=== PATIENT | male | born 1970 | race African-American/Black ===

== ENCOUNTER → 2020-10-14 08:17 | Outpatient (BNVA) | payer OTHER, SELFPAY | PROVIDERS: PCP Internal Medicine; Referring Provider Internal Medicine; Visit Provider Student in an Organized Health Care Education/Training Program | DX: Z13.89 Encounter for screening for other disorder (principal) ==

== ENCOUNTER → 2021-01-28 12:16 | Outpatient (BNVA) | payer OTHER, SELFPAY | PROVIDERS: PCP Internal Medicine; Visit Provider Student in an Organized Health Care Education/Training Program | DX: M35.2 Behcet's disease (principal); M19.90 Unspecified osteoarthritis, unspecified site; H20.9 Unspecified iridocyclitis; Z79.899 Other long term (current) drug therapy | CPT/HCPCS: 99212 ==

== ENCOUNTER → 2021-06-17 10:10 | Outpatient (BNVA) | payer OTHER, SELFPAY | PROVIDERS: PCP Internal Medicine; Visit Provider Student in an Organized Health Care Education/Training Program | DX: M35.2 Behcet's disease (principal); H20.9 Unspecified iridocyclitis; M19.90 Unspecified osteoarthritis, unspecified site; Z88.8 Allergy status to other drugs, medicaments and biological substances; Z79.52 Long term (current) use of systemic steroids; Z79.899 Other long term (current) drug therapy | CPT/HCPCS: 99212 ==

== ENCOUNTER 2021-08-25 11:24 | Outpatient (REF) | payer OTHER, SELFPAY ==
[2021-08-25 11:48] LABS: MANUAL DIFF FLAG NO
[2021-08-25 12:08] LABS: Basophils Absolute Auto 0.1 X10*3/uL (0.0-0.2); Basophils Percent Auto 0.4 % (0-2); Eosinophils Absolute Auto 0.1 X10*3/uL (0.0-0.4); Eosinophils Percent Auto 0.4 % (0-4); Hematocrit 41.5 % (42.0-52.0); Hemoglobin 13.5 g/dl (14.0-18.0); Imm Gran Abs Auto 0.08 X10*3/uL (0.00-0.03); Imm Gran Pct Auto 0.6 % (0.0-0.4); Lymphocytes Percent Auto 27.9 % (20-40); Mean Corpuscular HGB Conc 32.5 g/dl (31.0-36.0); Mean Corpuscular Hemoglobin 28.4 pg (27.0-33.0); Mean Corpuscular Volume 87.2 fL (80.0-98.0); Mean Platelet Volume 8.8 fL (9.4-12.4); Monocytes Absolute Auto 1.2 X10*3/uL (0.1-1.2); Monocytes Percent Auto 8.4 % (2-11); Neutrophils Absolute Auto 8.86 x10*3/uL (2.0-8.3); Neutrophils Percent Auto 62.3 % (45-73); Platelet Count 274 X10*3/uL (160-400); Red Blood Count 4.76 X10*6/uL (4.60-5.80); Red Cell Distribution Width 13.8 % (11.0-16.0); White Blood Count 14.2 X10*3/uL (4.8-10.8)
[2021-08-25 12:52] LABS: Alanine Aminotransferase 25 U/L (0-40); Albumin Level 3.9 g/dL (3.5-5.0); Alkaline Phosphatase 75 U/L (39-117); Anion Gap 11 (12-20); Aspartate Amino Transferase 20 U/L (5-37); Bilirubin Total 0.4 mg/dL (0.0-1.0); Blood Urea Nitrogen 15 mg/dL (9-16); Calcium 9.9 mg/dL (8.4-10.2); Carbon Dioxide 25 mmol/L (22-29); Chloride 109 mmol/L (96-108); Estimated Glomerular Filt Rate 55; Glucose Random 118 mg/dL (60-115); Potassium 3.7 mmol/L (3.3-5.1); Sodium 141 mmol/L (135-145); Total Protein 7.8 g/dL (6.5-8.0)
[2021-08-25 13:16] LABS: Erythrocyte Sedimentation Rate 25 MM/HR (0-15)
== END 2021-08-25 11:25 | disposition home or self-care (01) ==
LOC: HO.LAB 11:24
PROVIDERS: Visit Provider Student in an Organized Health Care Education/Training Program
DX: M35.2 Behcet's disease (principal)
CPT/HCPCS: 36415; 80053; 85025; 85652; 86140

== ENCOUNTER 2022-02-17 10:13 | Outpatient (REF) | payer OTHER, SELFPAY ==
[2022-02-17 12:09] LABS: MANUAL DIFF FLAG NO
[2022-02-17 13:24] LABS: Basophils Percent Auto 0.2 % (0-2); Eosinophils Absolute Auto 0.1 X10*3/uL (0.0-0.4); Eosinophils Percent Auto 0.5 % (0-4); Hematocrit 43.3 % (42.0-52.0); Hemoglobin 14.1 g/dl (14.0-18.0); Imm Gran Abs Auto 0.05 X10*3/uL (0.00-0.03); Imm Gran Pct Auto 0.4 % (0.0-0.4); Lymphocytes Absolute Auto 2.4 X10*3/uL (1.2-4.9); Lymphocytes Percent Auto 18.7 % (20-40); Mean Corpuscular HGB Conc 32.6 g/dl (31.0-36.0); Mean Corpuscular Hemoglobin 27.8 pg (27.0-33.0); Mean Corpuscular Volume 85.4 fL (80.0-98.0); Mean Platelet Volume 9.2 fL (9.4-12.4); Monocytes Absolute Auto 0.9 X10*3/uL (0.1-1.2); Neutrophils Absolute Auto 9.2 x10*3/uL (2.0-8.3); Neutrophils Percent Auto 73.2 % (45-73); Platelet Count 243 X10*3/uL (160-400); Red Blood Count 5.07 X10*6/uL (4.60-5.80); Red Cell Distribution Width 14.4 % (11.0-16.0); White Blood Count 12.6 X10*3/uL (4.8-10.8)
[2022-02-17 14:40] LABS: Erythrocyte Sedimentation Rate 32 MM/HR (0-15)
== END 2022-02-17 10:14 | disposition home or self-care (01) ==
LOC: HO.LAB 10:13
PROVIDERS: Visit Provider Internal Medicine Rheumatology
DX: M35.2 Behcet's disease (principal); M19.90 Unspecified osteoarthritis, unspecified site; H20.9 Unspecified iridocyclitis; R27.0 Ataxia, unspecified; Z98.890 Other specified postprocedural states; Z86.79 Personal history of other diseases of the circulatory system
CPT/HCPCS: 36415; 85025; 85652; 86140; 99212

== ENCOUNTER 2022-03-05 09:12 | Outpatient (REF) | payer OTHER, SELFPAY ==
--- NOTE | ~2022-03-05 | MR_ITS ---
EXAMINATION: MRI BRAIN WITHOUT CONTRAST CLINICAL INFORMATION: 51-year-old with ataxia, unspecified. COMPARISON: None FINDINGS: BRAIN VOLUME: Within normal limits within the limitations of a qualitative assessment. STRUCTURAL: No malformations. BRAIN AND MENINGES: DWI sequence demonstrates no restricted diffusion to suggest acute or subacute cerebral ischemia. Gradient refocused imaging demonstrates no evidence for hemorrhage, hemosiderin staining or abnormal mineral deposition. There are patchy and confluent regions of FLAIR/T2 signal hyperintensity and subcentimeter regions of T2 hyperintensity noted in the subcortical and deeper periventricular white matter of both cerebral hemispheres predominately in a periventricular distribution which are nonspecific findings, but could reflect chronic ischemic microangiopathy. There is a small remote lacunar infarct in the anterior right putamen also involving the anterior limb of the right internal capsule and caudate head. Probable small remote lacunar infarct left putamen. No extra-axial fluid collections, significant space-occupying process or mass effect. VENTRICLES AND SUBARACHNOID SPACES: The ventricular system and subarachnoid spaces are remarkable for a mild degree of ex vacuo dilatation of the frontal horn of the right lateral ventricle likely reflecting chronic infarction of the adjacent right lentiform nucleus. Otherwise there is no hydrocephalus. ORBITAL STRUCTURES: Bilateral lens extractions are noted. The visualized orbital structures are grossly unremarkable within the limitations of the study. VASCULAR: Signal voids are noted in the visualized major intracranial vessels. OSSEOUS STRUCTURES, SINUSES/MASTOIDS, EXTRACRANIAL SOFT TISSUES: Minor mucosal thickening in the ethmoid complex noted. Osseous marrow signal intensity appears homogeneous. There is lordotic reversal centered at C4 with discogenic degenerative changes and spondylosis at C3-C4 and C4-C5. Visualized extracranial soft tissue structures are unremarkable. MR/MR head/brain wo con IMPRESSION: 1. Findings suggesting chronic ischemic microangiopathy in the white matter of both cerebral hemispheres with a periventricular distribution, with remote infarct involving the right lentiform nucleus and remote lacunar infarct involving the left putamen. 2. No acute or subacute cerebral ischemia, hemorrhage, extra-axial fluid collection, space-occupying process, mass effect or hydrocephalus.
--- NOTE | ~2022-03-05 | XR_ITS ---
EXAMINATION: PRE-MRI ORBITS. CLINICAL INFORMATION: Rule out metallic implant or foreign body COMPARISON: None TECHNIQUE: 3 views FINDINGS: There are no radiopaque metallic foreign body seen in the orbits. Visualized paranasal sinuses and mastoid air cells are well aerated and clear. No bony abnormality seen. XR/XR pre mri screening IMPRESSION: No radiopaque metallic foreign body seen in the orbits.
== END 2022-03-05 09:13 | disposition home or self-care (01) ==
LOC: HO.MRI 09:12
PROVIDERS: Visit Provider Internal Medicine Rheumatology
DX: M35.2 Behcet's disease (principal); R27.0 Ataxia, unspecified; Z86.79 Personal history of other diseases of the circulatory system
CPT/HCPCS: 70551

== ENCOUNTER → 2022-05-17 13:00 | Outpatient (BNVA) | payer OTHER, SELFPAY | PROVIDERS: PCP Internal Medicine; Visit Provider Internal Medicine Rheumatology | DX: M35.2 Behcet's disease (principal); H20.9 Unspecified iridocyclitis; M19.90 Unspecified osteoarthritis, unspecified site; R93.0 Abnormal findings on diagnostic imaging of skull and head, not elsewhere classified; H91.93 Unspecified hearing loss, bilateral; R27.0 Ataxia, unspecified; Z86.79 Personal history of other diseases of the circulatory system; Z79.899 Other long term (current) drug therapy | CPT/HCPCS: 99212 ==

== ENCOUNTER 2022-08-31 08:50 | Outpatient (REF) | payer OTHER, SELFPAY ==
[2022-08-31 10:34] LABS: MANUAL DIFF FLAG NO
[2022-08-31 10:44] LABS: Basophils Percent Auto 0.2 % (0-2); Eosinophils Percent Auto 0.3 % (0-4); Hematocrit 45.2 % (42.0-52.0); Hemoglobin 14.4 g/dl (14.0-18.0); Imm Gran Abs Auto 0.04 X10*3/uL (0.00-0.03); Imm Gran Pct Auto 0.3 % (0.0-0.4); Lymphocytes Absolute Auto 3.3 X10*3/uL (1.2-4.9); Lymphocytes Percent Auto 26.7 % (20-40); Mean Corpuscular HGB Conc 31.9 g/dl (31.0-36.0); Mean Corpuscular Volume 87.9 fL (80.0-98.0); Mean Platelet Volume 9.1 fL (9.4-12.4); Monocytes Absolute Auto 0.8 X10*3/uL (0.1-1.2); Monocytes Percent Auto 6.5 % (2-11); Neutrophils Absolute Auto 8.3 x10*3/uL (2.0-8.3); Platelet Count 270 X10*3/uL (160-400); Red Blood Count 5.14 X10*6/uL (4.60-5.80); Red Cell Distribution Width 13.4 % (11.0-16.0); White Blood Count 12.5 X10*3/uL (4.8-10.8)
[2022-08-31 11:33] LABS: Alanine Aminotransferase 29 U/L (0-40); Albumin Level 4.1 g/dL (3.5-5.0); Alkaline Phosphatase 69 U/L (39-117); Anion Gap 16 (12-20); Aspartate Amino Transferase 24 U/L (5-37); Bilirubin Total 0.5 mg/dL (0.0-1.0); Blood Urea Nitrogen 14 mg/dL (9-16); C Reactive Protein 1.34 mg/dL (< or = 0.50); Calcium 9.7 mg/dL (8.4-10.2); Carbon Dioxide 23 mmol/L (22-29); Chloride 104 mmol/L (96-108); Estimated Glomerular Filt Rate 58; Glucose Random 102 mg/dL (60-115); Potassium 3.7 mmol/L (3.3-5.1); Sodium 139 mmol/L (135-145); Total Protein 8.7 g/dL (6.5-8.0)
[2022-08-31 11:35] LABS: Erythrocyte Sedimentation Rate 28 MM/HR (0-15)
== END 2022-08-31 08:51 | disposition home or self-care (01) ==
LOC: HO.10HDL 08:50
PROVIDERS: Visit Provider Internal Medicine Rheumatology
DX: M35.2 Behcet's disease (principal); H20.9 Unspecified iridocyclitis; R93.0 Abnormal findings on diagnostic imaging of skull and head, not elsewhere classified; M19.90 Unspecified osteoarthritis, unspecified site; Z79.899 Other long term (current) drug therapy
CPT/HCPCS: 36415; 80053; 85025; 85652; 86140; 99212

== ENCOUNTER 2022-12-28 08:30 | Outpatient (REF) | payer OTHER, SELFPAY ==
--- NOTE | ~2022-12-28 | XR_ITS ---
EXAMINATION: XR KNEE, RIGHT CLINICAL INFORMATION: Reason for Exam M19.90 - Unspecified osteoarthritis, unspecified site COMPARISON: Knee radiographs 02/14/2019 TECHNIQUE: 3 views of the knee FINDINGS: No acute fracture or dislocation. Moderate degenerative changes of the knee with mild loss of medial and lateral compartment joint space and spurring of the tibial spines slightly progressed from prior. No joint effusion. Soft tissues are unremarkable. XR/XR knee RT 3V IMPRESSION: Moderate degenerative changes of the knee with mild loss of medial and lateral compartment joint space and spurring of the tibial spines slightly progressed from prior.
[2022-12-28 10:07] LABS: MANUAL DIFF FLAG NO
[2022-12-28 10:49] LABS: Basophils Absolute Auto 0.1 X10*3/uL (0.0-0.2); Basophils Percent Auto 0.6 % (0-2); Eosinophils Absolute Auto 0.1 X10*3/uL (0.0-0.4); Eosinophils Percent Auto 0.8 % (0-4); Hematocrit 43.5 % (42.0-52.0); Hemoglobin 13.9 g/dl (14.0-18.0); Imm Gran Abs Auto 0.02 X10*3/uL (0.00-0.03); Imm Gran Pct Auto 0.2 % (0.0-0.4); Lymphocytes Absolute Auto 3.7 X10*3/uL (1.2-4.9); Lymphocytes Percent Auto 38.7 % (20-40); Mean Corpuscular Hemoglobin 27.8 pg (27.0-33.0); Mean Platelet Volume 8.9 fL (9.4-12.4); Monocytes Absolute Auto 0.8 X10*3/uL (0.1-1.2); Monocytes Percent Auto 7.9 % (2-11); Neutrophils Percent Auto 51.8 % (45-73); Platelet Count 330 X10*3/uL (160-400); Red Cell Distribution Width 14.2 % (11.0-16.0); White Blood Count 9.7 X10*3/uL (4.8-10.8)
[2022-12-28 11:44] LABS: Alanine Aminotransferase 64 U/L (0-40); Albumin Level 3.8 g/dL (3.5-5.0); Alkaline Phosphatase 64 U/L (39-117); Anion Gap 12 (12-20); Aspartate Amino Transferase 28 U/L (5-37); Bilirubin Total 0.6 mg/dL (0.0-1.0); Blood Urea Nitrogen 14 mg/dL (9-16); C Reactive Protein 0.23 mg/dL (< or = 0.50); Calcium 8.8 mg/dL (8.4-10.2); Carbon Dioxide 25 mmol/L (22-29); Chloride 111 mmol/L (96-108); Estimated Glomerular Filt Rate > 60; Glucose Random 83 mg/dL (60-115); Potassium 3.7 mmol/L (3.3-5.1); Sodium 144 mmol/L (135-145)
[2022-12-28 12:09] LABS: Erythrocyte Sedimentation Rate 26 MM/HR (0-15)
[2022-12-30 12:34] LABS: TS Negative Control Passed; TS Panel A 0; TS Panel B 0; TS Positive Control Passed; TSpotTB Negative (Negative)
== END 2022-12-28 08:31 | disposition home or self-care (01) ==
LOC: HO.XRAY 08:30
PROVIDERS: PCP Internal Medicine; Visit Provider Internal Medicine Rheumatology
DX: M35.2 Behcet's disease (principal); M19.90 Unspecified osteoarthritis, unspecified site; Z79.899 Other long term (current) drug therapy; H20.9 Unspecified iridocyclitis; R27.0 Ataxia, unspecified; M47.12 Other spondylosis with myelopathy, cervical region
CPT/HCPCS: 36415; 73562; 80053; 85025; 85652; 86140; 86481; 99212

== ENCOUNTER → 2023-04-18 09:54 | Outpatient (BNVA) | payer OTHER, SELFPAY | PROVIDERS: PCP Internal Medicine; Visit Provider Internal Medicine Rheumatology | DX: M35.2 Behcet's disease (principal); M47.12 Other spondylosis with myelopathy, cervical region; H20.9 Unspecified iridocyclitis; Z79.899 Other long term (current) drug therapy | CPT/HCPCS: 99212 ==

== ENCOUNTER 2023-07-04 09:16 | Outpatient (REF) | payer OTHER, SELFPAY ==
[2023-07-04 09:37] LABS: MANUAL DIFF FLAG NO
[2023-07-04 10:06] LABS: Basophils Percent Auto 0.6 % (0-2); Eosinophils Absolute Auto 0.1 X10*3/uL (0.0-0.4); Eosinophils Percent Auto 0.8 % (0-4); Hematocrit 46.2 % (42.0-52.0); Hemoglobin 15.1 g/dl (14.0-18.0); Imm Gran Abs Auto 0.03 X10*3/uL (0.00-0.03); Imm Gran Pct Auto 0.4 % (0.0-0.4); Lymphocytes Percent Auto 42.1 % (20-40); Mean Corpuscular HGB Conc 32.7 g/dl (31.0-36.0); Mean Corpuscular Hemoglobin 29.2 pg (27.0-33.0); Mean Corpuscular Volume 89.2 fL (80.0-98.0); Monocytes Absolute Auto 0.7 X10*3/uL (0.1-1.2); Monocytes Percent Auto 9.1 % (2-11); Neutrophils Absolute Auto 3.4 x10*3/uL (2.0-8.3); Platelet Count 262 X10*3/uL (160-400); Red Blood Count 5.18 X10*6/uL (4.60-5.80); Red Cell Distribution Width 13.7 % (11.0-16.0); White Blood Count 7.2 X10*3/uL (4.8-10.8)
[2023-07-04 10:33] LABS: Anion Gap 10 (12-20); Blood Urea Nitrogen 17 mg/dL (9-16); C Reactive Protein 0.65 mg/dL (< or = 0.50); Calcium 9.9 mg/dL (8.4-10.2); Carbon Dioxide 32 mmol/L (22-29); Chloride 104 mmol/L (96-108); Estimated Glomerular Filt Rate > 60; Glucose Random 111 mg/dL (60-115); Potassium 3.4 mmol/L (3.3-5.1); Sodium 143 mmol/L (135-145)
[2023-07-04 10:47] LABS: Erythrocyte Sedimentation Rate 30 MM/HR (0-15)
== END 2023-07-04 09:17 | disposition home or self-care (01) ==
LOC: HO.LAB 09:16
PROVIDERS: Visit Provider Internal Medicine Rheumatology
DX: M35.2 Behcet's disease (principal); H20.9 Unspecified iridocyclitis; Z79.899 Other long term (current) drug therapy
CPT/HCPCS: 36415; 80048; 85025; 85652; 86140; 99212

== ENCOUNTER 2023-07-04 09:47 | Outpatient (AMB) | payer OTHER, SELFPAY ==
[2023-07-04 11:24] VITALS: BP 104/74; PULSE 77; TEMP 36.2; O2SAT 99; BMI 27.0
--- NOTE | 2023-07-04 11:24 | MHC.OFFVIS ---
Intake Vital Signs 07/04/23 11:24 Height 5 ft 11 in Weight 193 lb 5.526 oz BMI 27.0 BP 104/74 Blood Pressure Location Lt brachial Position Sitting Pulse 77 Pulse Source Pulse Oximeter Temp 97.2 F Temp Source Skin Pulse Oximetry (%) 99 Oxygen Delivery Method Room Air Intake Visit Reasons: Behcet's Intake Note: Patient here to follow up on Bechet's. 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 He remains on Humira 40 mg every week and prednisone 2.5 mg daily. There have been no adverse effects with this. He has not had any difficulty with delivery of the Humira recently. There are occasional pains in the knees but nothing looks swollen to him. He has not had any cutaneous, oral, or genital lesions recently. He says he recently had a corticosteroid injection in the right eye for his uveitis. That has improved his symptoms in that eye but the vision remains poor. He remains with hearing aids due to hearing loss. His ataxia he says is a bit more manageable now that he uses a cane with walking and has been doing some muscle strengthening exercises at home. He had been evaluated [facility]. The neurologist had been at the [facility] so I do not think they could locate the notes within their records. In any case the patient did not want to have follow-up in that region. He feels the ataxia is a bit better with his exercising regularly. [facility] Medical History (Updated 12/28/22 @ 08:45 by Landen Peralta MD) Glaucoma (increased eye pressure) History of nontraumatic rupture of cerebral aneurysm Long-term use of immunosuppressant medication Glaucoma suspect of both eyes Ataxia Hearing loss of both ears Hypertension Inflammatory arthritis Uveitis Behcet's disease Surgical History Hx of eye surgery Social History Alcohol intake: current Patient Tobacco Use Status: Never used Tobacco Current occupational status: retired Review of Systems Const Details: Energy in general seems a bit better. Negative for appetite change, weight change, fever, chills, malaise Eyes Details: He is legally blind. Somewhat less irritation in the right eye recently. Negative for vision change, dry eyes,headaches and dizziness ENT Details: Hearing is impaired and he is using the hearing aids. Negative for hearing change, tinnitus, oral ulcer, nose bleeds and oral dryness. Card Details: Negative chest pain, edema and syncope Resp Details: Negative for SOB, cough and wheezing GI Details: Negative indigestion/heartburn, nausea, abdominal pain, bowel changes, diarrhea, constipation and bloody stool. Skin/Breast Details: Negative for itching, rash, hives, Raynaud's symptoms, sun sensitivity, and skin cancer Neuro Details: He feels unsteady at times on his feet. Some of this is related to visual problems. He feels better after doing some regular exercising at home. Negative for epilepsy, palsy, stroke, changes in speech, tingling and weakness Psych Details: He says he is getting . He seems to be coping with that problem or calmly presently. He seems to want have more social interaction with finds it difficult given his disabilities. Kenn/Lymph Details: Negative for excessive bruising or bleeding. Physical Exam Vital Signs: Last Vital Signs Temp 97.2 F 07/04/23 11:24 Pulse 77 07/04/23 11:24 BP 104/74 07/04/23 11:24 Pulse Ox 99 07/04/23 11:24 Oxygen Delivery Method Room Air 07/04/23 11:24 BMI result Body Mass Index 27.0 APPEARANCE: Patient in no acute distress EYES:? There is no redness in the eyelids or eyes evident today.? The eyelids are not tender or inflamed.? There is no swelling of the eyelid.? No sinus or periorbital tenderness. EARS:? Markedly diminished hearing.? Hearing aids in place. External ear normal NOSE/SINUS:? Airflow through both nares, no nasal discharge, no bleeding THROAT:? Oral mucosa moist, no ulcerations NECK:? No thyromegaly or masses, no adenopathy, trachea midline. HEART:? Regulrar rhythm, S1-S2 heard, no murmurs, rubs or gallops. LUNG:? Clear to percussion and auscultation ABD:? Normal bowel sounds, no organomegaly, masses or tenderness. EXTREMITIES:? No edema, no calf tenderness, normal peripheral pulses. NEURO:? Oriented and alert x3.? No focal weakness.? Cranial nerves other than the visual acuity and hearing seem normal.? He is ataxic when he walks.? He cannot do tandem walking.? Reflexes are diminished but seem symmetric.? There may be some quadriceps weakness.? No movement disorder. SKIN:? There are dystrophic nail changes of both 1st toenails in the thumb and 2nd finger in the right hand.? Other nails look to be normal.? The skin is otherwise of normal color without inflammatory or neoplastic lesions. JOINT EXAM:.?? Cervical Spine:.? Full range of motion without pain; no tenderness. Thoracic Spine:.? No scoliosis.? No tenderness on palpation. Lumbar Spine:.? Alignment normal.? Full range of motion without pain, no tenderness. Chest Wall:.? No tenderness, swelling, increased warmth or erythema. Hands:.? Normal pain-free range of motion without tenderness, swelling, increased warmth or erythema. Able to make a full fist and has a good soa integration developer strength. Wrists:.? Normal pain-free range of motion without tenderness, swelling, increased warmth or erythema. Elbows:. Normal pain-free range of motion without tenderness, swelling, increased warmth or erythema. Shoulders:.?? Full range of motion without pain. No tenderness, weakness, swelling, increased warmth or erythema. Hips:.? Full range of motion without pain. Hip bursa:.? No tenderness. Knees:? Right:? Normal pain-free range of motion.? There is some mild medial compartment tenderness without redness or effusion.? There is mild patellofemoral crepitus.? Left:?? Normal pain-free range of motion with mild patellofemoral crepitus but no effusion, soft tissue swelling, tenderness increased warmth or erythema.? Ankles:.? Normal pain-free range of motion without tenderness, swelling, increased warmth or erythema. Feet:.? Normal pain-free range of motion.? There is some hallux valgus deformity in 1st MTP bilateral enlargement without tenderness.? Other joints are without tenderness, swelling, increased warmth or erythema. ??? Results Reviewed Results Reviewed: December 28: ESR 26, ESR 0.23 Assessment & Plan Assessment & Plan (1) Behcet's disease: Comment: Dx 2007. uveitis since 2000, oral ulcers, inflammatory arthritis since 2005 methotrexate tried - headaches Remicade, sulfasalazine, colchicine tried - not helpful Humira helps for joints and uveitis Code(s): M35.2 - Behcet's disease (2) Uveitis: Comment: since 2000; seen at [facility]: CS eyedrops, hx surgery for glaucoma and ocular calcium some response to Humira Code(s): H20.9 - Unspecified iridocyclitis (3) Long-term use of immunosuppressant medication: Code(s): Z79.899 - Other senior care (current) drug therapy Plan The Behcet's disease is with no ulcerations in the mucosa in the mouth or the skin elsewhere. He seems to still have some rare arthralgias but no raquel synovitis. His neurologic status seems stable. The vision and hearing also seem stable although certainly they are quite impaired. We will continue with the weekly Humira as above. I will check some lab work today. A follow-up at 5 to 6 months is recommended. Coding Level of Care Code Est Pt Level 3 (23599) Diagnoses Behcet's disease M35.2 Uveitis H20.9 Long-term use of immunosuppressant medication Z79.899
== END 2023-07-04 11:48 | disposition home or self-care (01) ==
LOC: HO.RHE 09:47
PROVIDERS: PCP Internal Medicine; Referring Provider Internal Medicine; Visit Provider Internal Medicine Rheumatology
DX: M35.2 Behcet's disease (principal); H20.9 Unspecified iridocyclitis; Z79.899 Other long term (current) drug therapy
CPT/HCPCS: 99213

== ENCOUNTER 2024-05-21 15:43 | Outpatient (AMB) | payer OTHER, SELFPAY ==
[2024-05-21 15:46] VITALS: BP 130/62; PULSE 79; O2SAT 97; BMI 28.5
--- NOTE | 2024-05-21 15:46 | A.OFFVIS_ITS ---
Vital Signs 05/21/24 15:46 Height 5 ft 11 in Weight 204 lb 5.896 oz BMI 28.5 BP 130/62 Blood Pressure Location Lt brachial Position Sitting Pulse 79 Pulse Source Pulse Oximeter Pulse Oximetry (%) 97 Oxygen Delivery Method Room Air Intake Visit Reasons: Bechet's/lm Intake Note: Patient last seen on 07/04/[address] Peralta present today for follow up. Accompanied by: Self / Same As Patient Allergies azathioprine [Imuran] Allergy (Intermediate, Verified 07/04/23 11:25) swelling Medication List - Last Reconciled 05/21/24 by Simeon Tinoco MD chlorthalidone 25 mg PO DAILY difluprednate 0.05% 1 drp ophthalmic (eye) BID Humira(CF) Pen (adalimumab) 40 mg (0.4 mL) subcut QWEEK NS lisinopril 40 mg PO DAILY prednisone 2.5 mg PO DAILY HPI Comments Details: This is a 53-year-old male with Behcet's who presents for follow-up. He remains on Humira weekly and 2.5 mg of prednisone daily. States that he feels about the same overall. Believes that there is slow progression of his all symptoms of pain, instability, hearing loss and vision loss. States that he was evaluated by mechanical engineer 3 months ago and states that he was told he had no inflammation he was evaluated by a neurologist over the last year and was told that has a cervical myelopathy and he should get a consult from a neurosurgeon but patient did not feel like there was a very high likelihood of improvement with surgery. He just started PT for his spine. He denies any swollen joints. [facility] Medical History Glaucoma (increased eye pressure) History of nontraumatic rupture of cerebral aneurysm Long-term use of immunosuppressant medication Glaucoma suspect of both eyes Ataxia Hearing loss of both ears Hypertension Inflammatory arthritis Uveitis Behcet's disease Surgical History Hx of eye surgery Social History Alcohol intake: current Patient Tobacco Use Status: Never used Tobacco Current occupational status: retired Review of Systems Eyes Details: He is legally blind. Somewhat less irritation in the right eye recently. Negative for vision change, dry eyes,headaches and dizziness ENT Details: Hearing is impaired and he is using the hearing aids. Negative for hearing change, tinnitus, oral ulcer, nose bleeds and oral dryness. Neuro Details: He feels unsteady at times on his feet. Some of this is related to visual problems. He feels better after doing some regular exercising at home. Negative for epilepsy, palsy, stroke, changes in speech, tingling and weakness Kenn/Lymph Details: Negative for excessive bruising or bleeding. Physical Exam Vital Signs: Last Vital Signs Pulse 79 05/21/24 15:46 BP 130/62 05/21/24 15:46 Pulse Ox 97 05/21/24 15:46 Oxygen Delivery Method Room Air 05/21/24 15:46 BMI result Body Mass Index 28.5 Const General: cooperative, healthy appearing and comfortable Nutritional Appearance: overweight Orientation/consciousness: patient oriented x3 Limitations: ambulation with cane HEENT Head: Yes normocephalic and Yes atraumatic Mouth: moist mucous membranes Eyes Other: Lens opacity bilaterally Resp Effort & Inspection: normal respiratory effort and able to speak in complete sentences Auscultation: clear to auscultation bilaterally Cardio Rate: regular rate Rhythm: regular rhythm Skin General skin exam: no rashes or lesions noted Neuro General: patient oriented x3 Extrem Other: [place]-neck deformity of right index Active synovitis otherwise Normal range of motion of hands, wrists, elbows and shoulders without pain No knee pain with flexion-extension bilaterally No ankle swelling or tenderness bilaterally Assessment & Plan Assessment & Plan (1) 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 This is his 1st visit with me. He used to follow-up with Dr. Peralta. On exam it looks like patient about the same overall. I do not see any signs suggestive of active disease on exam. There is no inflammatory arthritis on exam. States that he was evaluated by his mechanical engineer within the last 3 months and was told that he has no inflammation. Patient was referred to see a new ppa teacher. I was not able to find any records. It seems that sarcoidosis was brought up. I will check labs to evaluate disease activity. Check further serologies. Advised patient to get blood work done as soon as possible Continue with Humira 40 mg weekly and prednisone 2.5 mg daily Follow-up in 6 months (2) Uveitis: Comment: since 2000; seen at [facility]: CS eyedrops, hx surgery for glaucoma and ocular calcium some response to Humira Code(s): H20.9 - Unspecified iridocyclitis Category: Medical (3) Cervical arthritis with myelopathy: Code(s): M47.12 - Other spondylosis with myelopathy, cervical region Category: Medical Plan: Was evaluated by a neurologist due to poor gait last year it was attributed to cervical myelopathy. Patient did not want to get evaluated by a spine surgeon. Started PT recent (4) Long-term use of immunosuppressant medication: Code(s): Z79.899 - Other alf (current) drug therapy Category: Medical Plan: Patient has been on Humira regularly for many years without side effects. Will check A T-spot test Plan I spent 47 minutes reviewing patient's chart, evaluating patient, ordering diagnostic workup, counseling patient and documenting in the chart Orders: Orders Comprehensive Met. Panel Today M35.2 - Behcet's disease Erythrocyte Sedimentation Rate Today M35.2 - Behcet's disease Immunofixation Pnl, Serum Today M35.2 - Behcet's disease Protein Electrophoresis, Serum Today M35.2 - Behcet's disease T Spot TB Today Z11.7 - Encounter for testing for latent tuberculosis infection HLA B51 Behcet's Disease Today M35.2 - Behcet's disease HLA B27 Today H20.9 - Unspecified iridocyclitis Lysozyme, Serum Today D86.9 - Sarcoidosis, unspecified Complete Blood Count Auto Diff Today M35.2 - Behcet's disease C Reactive Protein Today M35.2 - Behcet's disease Hepatitis B Surface Antigen Today M35.2 - Behcet's disease Angiotensin Converting Enzyme Today D86.9 - Sarcoidosis, unspecified Medications: Refilled Humira(CF) Pen (adalimumab) 40 mg (0.4 mL) subcut QWEEK 4 ea 5RF NS H20.9 - Unspecified iridocyclitis, M35.2 - Behcet's disease prednisone 2.5 mg PO DAILY 90 tabs 1RF H20.9 - Unspecified iridocyclitis, M19.90 - Unspecified osteoarthritis, unspecified site, M35.2 - Behcet's disease prednisone 2.5 mg PO DAILY 30 tabs 5RF H20.9 - Unspecified iridocyclitis, M19.90 - Unspecified osteoarthritis, unspecified site, M35.2 - Behcet's disease Coding Level of Care Code Est Pt Level 5 (98104) Complex EM visit Add On G2211 Diagnoses Behcet's disease M35.2 Uveitis H20.9 Cervical arthritis with myelopathy M47.12 Long-term use of immunosuppressant medication Z79.899
== END 2024-05-21 16:22 | disposition home or self-care (01) ==
PROVIDERS: PCP Internal Medicine; Visit Provider Student in an Organized Health Care Education/Training Program
DX: M35.2 Behcet's disease (principal); H20.9 Unspecified iridocyclitis; M47.12 Other spondylosis with myelopathy, cervical region; Z79.899 Other long term (current) drug therapy
CPT/HCPCS: 99215; G2211

== ENCOUNTER → 2024-05-21 15:43 | Outpatient (BNVA) | payer OTHER, SELFPAY | PROVIDERS: PCP Internal Medicine; Visit Provider Student in an Organized Health Care Education/Training Program | DX: M35.2 Behcet's disease (principal); M47.12 Other spondylosis with myelopathy, cervical region; H20.9 Unspecified iridocyclitis; Z79.899 Other long term (current) drug therapy | CPT/HCPCS: 99212 ==

== ENCOUNTER 2024-08-30 11:33 | Outpatient (REF) | payer OTHER, SELFPAY ==
[2024-08-30 12:38] LABS: MANUAL DIFF FLAG NO
[2024-08-30 12:50] LABS: Basophils Percent Auto 0.5 % (0-2); Eosinophils Absolute Auto 0.1 X10*3/uL (0.0-0.4); Eosinophils Percent Auto 1.7 % (0-4); Hematocrit 44.8 % (42.0-52.0); Hemoglobin 14.7 g/dl (14.0-18.0); Imm Gran Abs Auto 0.02 X10*3/uL (0.00-0.03); Imm Gran Pct Auto 0.3 % (0.0-0.4); Lymphocytes Percent Auto 37.7 % (20-40); Mean Corpuscular HGB Conc 32.8 g/dl (31.0-36.0); Mean Corpuscular Hemoglobin 28.3 pg (27.0-33.0); Mean Corpuscular Volume 86.2 fL (80.0-98.0); Mean Platelet Volume 9.6 fL (9.4-12.4); Monocytes Absolute Auto 0.6 X10*3/uL (0.1-1.2); Monocytes Percent Auto 8.1 % (2-11); Neutrophils Absolute Auto 4.1 x10*3/uL (2.0-8.3); Neutrophils Percent Auto 51.7 % (45-73); Platelet Count 243 X10*3/uL (160-400); Red Cell Distribution Width 13.8 % (11.0-16.0); White Blood Count 7.9 X10*3/uL (4.8-10.8)
[2024-08-30 13:29] LABS: Alanine Aminotransferase 27 U/L (0-40); Albumin Level 3.9 g/dL (3.5-5.0); Anion Gap 14 (12-20); Aspartate Amino Transferase 33 U/L (5-37); Bilirubin Total 0.5 mg/dL (0.0-1.0); Blood Urea Nitrogen 16 mg/dL (9-16); C Reactive Protein 1.56 mg/dL (< or = 0.50); Calcium 9.9 mg/dL (8.4-10.2); Carbon Dioxide 27 mmol/L (22-29); Chloride 102 mmol/L (96-108); Estimated Glomerular Filt Rate > 60; Glucose Random 106 mg/dL (60-115); Potassium 3.5 mmol/L (3.3-5.1); Sodium 139 mmol/L (135-145)
[2024-08-30 13:34] LABS: Erythrocyte Sedimentation Rate 44 MM/HR (0-15)
[2024-08-30 13:35] LABS: Alkaline Phosphatase 69 U/L (39-117)
[2024-08-31 04:11] LABS: Hepatitis B Surface Antigen Negative (Negative)
[2024-09-02 04:17] LABS: TS Negative Control Passed; TS Panel A 0; TS Panel B 0; TS Positive Control Passed; TSpotTB Negative (Negative)
[2024-09-03 10:54] LABS: Prot Elec - Alpha1 0.3 g/dL (0.2-0.3); Prot Elec - Alpha2 0.6 g/dL (0.5-0.9); Prot Elec - Beta 1 0.6 g/dL (0.4-0.6); Prot Elec - Beta 2 1.1 g/dL (0.2-0.5); Prot Elec - Gamma 2.1 g/dL (0.8-1.7); Prot Elec - Total Protein 8.6 g/dL (6.1-8.1)
[2024-09-03 22:04] LABS: IgA 1022 mg/dL (47-310); IgG 2334 mg/dL (600-1640); IgM 149 mg/dL (50-300)
[2024-09-04 22:38] LABS: Angiotensin Converting Enzyme 7 U/L (9-67)
[2024-09-05 21:14] LABS: Lysozyme, Serum 6.5 mcg/mL (5.0-11.0)
[2024-09-06 10:34] LABS: HLA B27 Negative (Negative)
[2024-09-10 17:43] LABS: HLA B51 B-1 B*42; HLA B51 B-1 Equivalent B42; HLA B51 B-2 B*81; HLA B51 B-2 Equivalent B81; HLA B51 Comments See Comments; HLA B51 Method PCR SSOP
== END 2024-08-30 11:34 | disposition home or self-care (01) ==
LOC: HO.LAB 11:33
PROVIDERS: Visit Provider Student in an Organized Health Care Education/Training Program
DX: D86.9 Sarcoidosis, unspecified (principal); M35.2 Behcet's disease; Z11.7 Encounter for testing for latent tuberculosis infection; H20.9 Unspecified iridocyclitis
CPT/HCPCS: 36415; 80053; 81374; 82164; 82784; 84165; 85025; 85549; 85652; 86140; 86334; 86481; 86812; 87340

== ENCOUNTER 2024-11-12 13:38 | Outpatient (REF) | payer OTHER, SELFPAY ==
[2024-11-12 16:09] LABS: MANUAL DIFF FLAG NO
[2024-11-12 16:17] LABS: Basophils Percent Auto 0.3 % (0-2); Eosinophils Absolute Auto 0.1 X10*3/uL (0.0-0.4); Eosinophils Percent Auto 1.2 % (0-4); Hematocrit 41.6 % (42.0-52.0); Hemoglobin 13.5 g/dl (14.0-18.0); Imm Gran Abs Auto 0.01 X10*3/uL (0.00-0.03); Imm Gran Pct Auto 0.1 % (0.0-0.4); Lymphocytes Absolute Auto 2.9 X10*3/uL (1.2-4.9); Lymphocytes Percent Auto 42.3 % (20-40); Mean Corpuscular HGB Conc 32.5 g/dl (31.0-36.0); Mean Corpuscular Hemoglobin 28.1 pg (27.0-33.0); Mean Corpuscular Volume 86.7 fL (80.0-98.0); Mean Platelet Volume 9.5 fL (9.4-12.4); Monocytes Absolute Auto 0.7 X10*3/uL (0.1-1.2); Monocytes Percent Auto 9.5 % (2-11); Neutrophils Absolute Auto 3.2 x10*3/uL (2.0-8.3); Neutrophils Percent Auto 46.6 % (45-73); Platelet Count 218 X10*3/uL (160-400); Red Cell Distribution Width 13.4 % (11.0-16.0); White Blood Count 6.9 X10*3/uL (4.8-10.8)
[2024-11-12 16:46] LABS: Alanine Aminotransferase 33 U/L (0-40); Albumin Level 3.6 g/dL (3.5-5.0); Anion Gap 12 (12-20); Aspartate Amino Transferase 36 U/L (5-37); Bilirubin Total 0.6 mg/dL (0.0-1.0); Blood Urea Nitrogen 18 mg/dL (9-16); C Reactive Protein 0.79 mg/dL (< or = 0.50); Calcium 9.5 mg/dL (8.4-10.2); Carbon Dioxide 23 mmol/L (22-29); Chloride 108 mmol/L (96-108); Estimated Glomerular Filt Rate > 60; Glucose Random 104 mg/dL (60-115); Potassium 3.2 mmol/L (3.3-5.1); Sodium 140 mmol/L (135-145); Total Protein 8.7 g/dL (6.5-8.0)
[2024-11-12 16:55] LABS: PSA,Total (Free>4and<10) 0.79 ng/mL (0.00-4.00)
[2024-11-12 17:05] LABS: Erythrocyte Sedimentation Rate 36 MM/HR (0-15)
[2024-11-12 17:21] LABS: Alkaline Phosphatase 59 U/L (39-117)
[2024-11-18 17:43] LABS: PSA, Ultra Sensitive 0.71 ng/mL
== END 2024-11-12 13:39 | disposition home or self-care (01) ==
LOC: HO.LAB 13:38
PROVIDERS: PCP Internal Medicine; Visit Provider Student in an Organized Health Care Education/Training Program
DX: H20.9 Unspecified iridocyclitis (principal); M35.2 Behcet's disease; R27.0 Ataxia, unspecified; Z12.5 Encounter for screening for malignant neoplasm of prostate; R35.0 Frequency of micturition; Z79.899 Other long term (current) drug therapy; Z79.52 Long term (current) use of systemic steroids
CPT/HCPCS: 36415; 80053; 84153; 85025; 85652; 86140; 99212

== ENCOUNTER → 2024-12-08 09:07 | Outpatient (BNV) | payer OTHER, SELFPAY | PROVIDERS: PCP Internal Medicine; Visit Provider Radiology Diagnostic Radiology | DX: R27.0 Ataxia, unspecified (principal); M47.896 Other spondylosis, lumbar region; N28.89 Other specified disorders of kidney and ureter | CPT/HCPCS: 72146; 72148 ==

== ENCOUNTER 2024-12-08 09:10 | Outpatient (REF) | payer OTHER, SELFPAY ==
--- NOTE | ~2024-12-08 | MR_ITS ---
EXAMINATION: MR LUMBAR SPINE WITHOUT CONTRAST CLINICAL INFORMATION: Ataxia. COMPARISON: None available. TECHNIQUE: MRI of the lumbar spine was obtained using routine sequences without contrast. FINDINGS: Last rib-bearing vertebra labeled T12. No bone marrow STIR signal abnormality. The alignment is normal. Focal hyperintense T2 signal in the posterior intervertebral disc L5-S1, L4-5 and L2-3 likely related to focal annular fissure. There is a focal 2 mm maximal thickness cylindrical shaped intrinsic hyperintense T1 signal in the dorsal aspect of the thecal sac likely intradural and extramedullary at the L4 level. Conus medullaris ends at pedicle of L1 with normal signal. T12-L1: No compression upon neural elements. L1-2: Broad-based disc bulging. Facet joint hypertrophy. No compression upon neural elements. L2-3: Broad-based disc bulging. Facet joint and ligamentum flavum hypertrophy. Reduced AP diameter of the thecal sac and the neural foramina, right greater than the left. L3-4: Broad-based disc bulging. Facet joint and ligamentum flavum hypertrophy. Reduced AP diameter of the thecal sac and the neural foramina. L4-5: Broad-based disc bulging. Facet joint and ligamentum flavum hypertrophy. Reduced AP diameter of the thecal sac likely abutting the L5 exiting nerve roots. Bilateral neuroforamina stenosis) left likely encroaching the right L4 nerve root. L5-S1: There is a central disc herniation abutting the S1 nerve roots on the lateral recesses. There is a deformity of the thecal sac. Bilateral neuroforamina narrowing without compressing the exiting nerve roots. There is a 4 cm exophytic complex intrinsic hyperintense T1 and hypointense T2 lesion/mass with a posterior wall nodular component MR/MR lumbar spine wo con IMPRESSION: Multilevel lumbar spondylosis, L2-3 to L5-S1 resulting in central spinal canal stenosis and bilateral neuroforamina stenosis more conspicuous at L4-5 and L3-4 levels. 4 cm exophytic lesion/mass, upper pole left kidney. Malignancy cannot be excluded. 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 Electronically signed by: Tomy Hudson MD 12/11/2024 09:52 AM EST
--- NOTE | ~2024-12-08 | MR_ITS ---
EXAMINATION: MR THORACIC SPINE WITHOUT CONTRAST CLINICAL INFORMATION: Ataxia. COMPARISON: None available. TECHNIQUE: MRI of the thoracic spine was obtained using routine sequences without contrast. FINDINGS: Limited by patient's breathing motion artifact. The thoracic spinal cord signal is normal. Multilevel marginal osteophyte formation and disc desiccation more conspicuous at T3-4, T2-3 T9-10 and T10-11. The alignment is normal. No bone marrow STIR signal abnormality. There is a left subarticular disc protrusion at T5-6 without cord compression. There is a left subarticular disc protrusion at T10-11 without cord compression. The conus medullaris ends at pedicle of L1 with normal signal. No prevertebral compartment hematoma mass or fluid collections. There is a 4 cm exophytic lesion in the upper pole left kidney. MR/MR thoracic spine wo con IMPRESSION: Limited examination demonstrated no gross cord edema and or myelopathy nor the demyelinating plaque. Multilevel spondylosis without cord compression. 4 cm exophytic lesion/mass, upper pole left kidney. Electronically signed by: Tomy Hudson MD 12/11/2024 08:55 AM EST LOU
--- OUTSIDE RECORDS SUMMARY | 2024-12-08 09:13 | XMS_ITS | Clinical Summary ---
Author Organization [address] Address [address] [place] [phone] Care Team Providers Care Vacuum Extractor Operator Name Role Phone Sheree Duff MD Primary Care Provider [phone] Allergies Active Allergy Reactions Criticality Noted Date Comments Azathioprine Swelling Medium 02/19/2013 Medications predniSONE (DELTASONE) 20 MG tablet Take 5 mg by mouth daily. Active AMLODIPINE BESYLATE (AMLODIPINE ORAL) Take by mouth daily. Active brimonidine-philly lol (COMBIGAN) 0.2-0.5 % ophthalmic solution 1 drop 2 (two) times daily (0800, 1800). 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 Family History Medical History Relation Name Comments Diabetes Mother Relation Name Status Comments Mother Alive Social History Tobacco Use Types Packs/Day Years Used Date Smoking Tobacco: Never Alcohol Use Standard Drinks/Week Comments No 0 (1 standard drink = 0.6 oz pur e alcohol) Sex and Gender Information Value Date Recorded Sex Assigned at Not on file Legal Sex Male 9:04 AM EST Gender Identity Not on file Sexual Orientation Not on file Last Filed Vital Signs Vital Sign Reading Time Taken Comments Blood Pressure 159/86 09/27/2013 7:03 PM EST Pulse 58 09/27/2013 7:03 PM EST Temperature 36 ??C (96.8 ??F) 09/27/2013 7:03 PM EST Respiratory Rate 18 09/27/2013 7:03 PM EST Oxygen Saturation 98% 09/27/2013 6:00 PM EST Inhaled Oxygen Concentration - - Weight 83 kg (183 lb) 09/27/2013 1:27 PM EST Height 180.3 cm (5' 11 ) 09/27/2013 1:27 PM EST Body Mass Index 25.52 09/27/2013 1:27 PM EST Plan of Treatment Health Maintenance Due Date Last Done Comments HIV screening 1982 Hepatitis C screening 1987 Lipid disorder screening 2009 Colon cancer screening, Colonoscopy 2014 Diabetes screening 2014 Shingles vaccine (Shingrix) (1 of 2 - Shingrix (RZV) 2 Dose Standard Series) 2019 Tetanus adult (Td q 10,TDAP once) 01/13/2022 01/14/2012 Influenza vaccine 05/24/2024 10/24/2013, 06/24/2012 Covid-19 vaccine series ( season) 2024 RSV Discussion (1 - 1-dose 7 5+ series) 2044 Meningococcal Vaccine Aged Out No mt duyen eligible based on patient's age to complete this topic Pneumococcal Vaccine (2 - 49 years) Aged Out No longer eligible b ased on patient's age to complete this topic Medical Devices Implanted Type Area Diesel Powerplant Mechanic Device Identifier Shelf Expiration Date Model / Serial / Lot Lense Sn60wf 20.5 - [id number] Implanted:Qty : 1 on 06/28/2013 by Kenney Ramos MD at [address] Lens Right: Eye [employer] ([employer]) 01/21/2018 [id number].205 / / [id number] Lens Sn60wf 21.0 - [id number] Implanted:Qty : 1 on 09/27/2013 by Kenney Ramos MD at [facility] [address] Lens Left: Eye [employer] ([employer]) 06/23/2018 SN60WF.210 / [id number] / [id number]. Implant Retisert 0.59mg Drug - [id number] Implanted:Qty : 1 on 06/28/2013 by Kenney Ramos MD at [address] Right: Eye [employer] ([employer]) 12/22/2014 [id number] / / [id number] Implant Retisert 0.59mg Drug - [id number] Implanted:Qty : 1 on 09/27/2013 by Kenney Ramos MD at [address] Left: Eye [employer] ([employer]) 01/21/2015 [id number] / / [id number] Insurance [employer] [facility] Care Teams Vacuum Extractor Operator Relationship Specialty Start Date End Date Sheree Duff MD [address] [place] [id number] PCP - General Internal Medicine 11/02/13
--- OUTSIDE RECORDS SUMMARY | 2024-12-08 09:13 | XMS_ITS | Encounter Summary ---
Author Organization [facility] and [facility] Address [address] [place] [phone] Care Team Providers Care Tilt Wall Supervisor Name Role Phone Unavailable Primary Care Provider Unavailabl e Encounter Details Date Type Department Care Team (Late st Contact Info) Description 05/14/2011 1:30 PM EDT Hospital Encounter INTERFACE DEFAULT [address] [place] [address] [phone] Social History Tobacco Use Types Packs/Day Years [...]
--- OUTSIDE RECORDS SUMMARY | 2024-12-08 09:13 | XMS_ITS | Clinical Summary ---
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 Needs [employer] as of 07/13/2021. Loss of eye 07/15/2021 DX:Loss of eye Chronic uveitis 11/21/2020 DX:Chronic uveit is; COMMENT: On chronic steroids. History of osteomyelitis 11/21/2020 DX:Hist ory of osteomyelitis; COMMENT: R Ileum 11/07/15 History of subarachnoid hemorrhage 06/15/2017 DX:History of subarachnoid hemorrhage; COMMENT: [facility] Prediabetes 11/21/2020 DX:Prediabetes Tubular adenoma of colon 11/21/2020 DX:Tubu lar adenoma of colon; COMMENT: 09/29/11 4 mm tubular adenoma-transverse colon. 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 Degenerative arthritis 07/15/2021 DX:Degene rative arthritis Family History Medical History Relation Name Comments Diabetes Brother Colon cancer Father Diabetes Mother Other: SLE Sister Hypertension Son Relation Name Status Comments Brother Father Mother Sister Son Social History Tobacco Use Types Packs/Day Years Used Date Smoking Tobacco: Never Smokeless Tobacco: Never Alcohol Use Standard Drinks/Week Comments Yes 0 (1 standard drink = 0.6 oz pur e alcohol) Sex and Gender Information Value Date Recorded Sex Assigned at Not on file Legal Sex Male 10:40 AM EST Gender Identity Not on file Sexual Orientation Not on file Obstetrics History Plan of Treatment Health Maintenance Due Date Last Done Comments COVID-19 Vaccine (#1) 1974 DTaP,Tdap,and Td Vaccines (1 - Tdap) 1988 Hepatitis B Vaccines (1 of 3 - 19+ 3-dose series) 1988 Pneumococcal Vaccine: 50+ Ye ars (1 of 1 - PCV) 2019 Zoster Vaccines (1 of 2) 2019 Cholesterol Screening (Lipid Panel) 10/02/2022 Colorectal Cancer Screening: Colonoscopy 10/02/2022 Depression Screening 10/02/2022 HIV Screening 10/02/2022 Hepatitis C Screening 10/02/2022 Social Influencers of Health Screening 10/02/2022 Hypertension/CHF/CAD Annual BMP Blood Test 10/08/2022 Influenza Vaccine (#1) 2024 HIB Vaccines Aged Out No longer eligi ble based on patient's age to complete this topic HPV Vaccines Aged Out No longer eligi ble based on patient's age to complete this topic Hepatitis A Vaccines Aged Out No long er eligible based on patient's age to complete this topic IPV Vaccines Aged Out No longer eligi ble based on patient's age to complete this topic MMR Vaccines Aged Out No longer eligi ble based on patient's age to complete this topic Meningococcal ACWY Vaccine Aged Out N o longer eligible based on patient's age to complete this topic Meningococcal B Vacine Aged Out No lo nger eligible based on patient's age to complete this topic Pneumococcal Vaccine: Pediat rics (0 to 5 Years) and At-Risk Patients (6 to 64 Years) Aged Out No longer eligible b ased on patient's age to complete this topic RSV Immunization Patients Un ashok 20 months Aged Out No longer eligible b ased on patient's age to complete this topic Varicella Vaccines Aged Out No longer eligible based on patient's age to complete this topic Care Teams Pizza Chef Relationship Specialty [place] [address] [place] [id number] PCP - General Internal Medicine 01/27/22
--- OUTSIDE RECORDS SUMMARY | 2024-12-08 09:13 | XMS_ITS | Clinical Summary ---
Author Organization [facility] Address [address] [place] [address] Care Team Providers Care Union Representative Name Role Phone Pcp, No Primary Care Provider Unavailabl e Social History Tobacco Use Types Packs/Day Years Used Date Smoking Tobacco: Never Assessed Sex and Gender Information Value Date Recorded Sex Assigned at Not on file Gender Identity Not on file Sexual Orientation Not on file Plan of Treatment Health Maintenance Due Date Last Done Comments Hepatitis C Virus Screening 1969 HIV Screening 1982 DTaP/Tdap/Td Vaccines (1 - Tdap) 1988 Hepatitis B Vaccines (1 of 3 - 19+ 3-dose series) 1988 Colonoscopy 2014 Pneumococcal Vaccines 50+ (1 of 1 - PCV) 2019 Zoster (Shingles) Vaccine (1 of 2) 2019 Influenza Vaccine 05/24/2024 10/24/2013, 06/24/2012 COVID-19 Vaccine ( - 2023-2 5 season) 2024 Pneumococcal Vaccine: Pediatric (0-5 Years) and At-Risk Patients (6 to 49 Years) Aged Out No longer eligible b ased on patient's age to complete this topic Care Teams Union Representative Relationship Specialty Start Date End Date Pcp, No PCP - General General Medicine 6/27/22
== END 2024-12-08 09:11 | disposition home or self-care (01) ==
LOC: HO.MRI 09:10
PROVIDERS: PCP Internal Medicine; Visit Provider Student in an Organized Health Care Education/Training Program
DX: R27.0 Ataxia, unspecified (principal)
CPT/HCPCS: 72146; 72148

== ENCOUNTER 2025-01-22 09:02 | Outpatient (AMB) | payer OTHER, SELFPAY ==
--- NOTE | 2025-01-22 09:32 | MHC.OFFVIS ---
Vital Signs 01/22/25 09:41 Height 5 ft 11 in Weight 210 lb 5.136 oz BMI 29.3 BP 142/80 H Blood Pressure Location Lt brachial Position Sitting Pulse 92 Pulse Source Pulse Oximeter Pulse Oximetry (%) 97 Oxygen Delivery Method Room Air Intake Visit Reasons: discuss medication & Behcets Intake Note: Patient presents for Behcets and to discuss medication. 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 Interval History: Patient last seen 11/12/24 with me. At that time he remained on Humira weekly as well as 2.5 mg of prednisone. There was no evidence of any active inflammatory arthritis on his examination or recurrence of uveitis. He was complaining of worsening ataxia over the several months prior and the concern was he may be having a demyelinating syndrome which is associated with long-term Humira use. MRI of the spine did not shown any demyelination of the spinal cord however there was a 4 cm exophytic mass on the upper pole of the left kidney concerning for malignancy. We reached out to the patient and told him to follow up with renal Today he is here for a urgent visit, requesting increase in prednisone He has been having worsening eye issues and he is wondering if increasing his prednisone back to 10mg will help Rheumatologic History: Dx 2007 with Behcet's. 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 Glaucoma (increased eye pressure) History of nontraumatic rupture of cerebral aneurysm Long-term use of immunosuppressant medication Glaucoma suspect of both eyes Ataxia Hearing loss of both ears Hypertension Inflammatory arthritis Uveitis Behcet's disease Surgical History Hx of eye surgery Social History Alcohol intake: current Patient Tobacco Use Status: Never used Tobacco Current occupational status: retired Review of Systems Const Details: Review of Systems Constitutional: Denies fever, chills, weight loss ENT: Denies vision changes, eye pain or eye redness, dental caries, dry mouth GI: Denies nausea, vomiting, diarrhea, abdominal pain, change in BM Pulm: Denies SOB, [place], hemoptysis, wheezing Cards: Denies chest pain, palpitations Skin: Denies Raynaud's, rash, nail changes, photosensitivity, TREATING INSPECTOR: Denies headaches MSK: as per HPI All other systems reviewed and are unremarkable except noted above Physical Exam Vital Signs: Last Vital Signs Pulse 92 01/22/25 09:41 BP 142/80 H 01/22/25 09:41 Pulse Ox 97 01/22/25 09:41 Oxygen Delivery Method Room Air 01/22/25 09:41 BMI result Body Mass Index 29.3 Vital signs reviewed Physical Examination CONSTITUITIONAL Patient alert and cooperative. Well appearing and in no apparent painful distress. Walks with a cane. unsteady/ataxic gait HEENT conjunctival erythema noted to the right eye ? CHEST/RESPIRATORY SYSTEM Normal respiratory effort and able to speak in complete sentences. ?Clear to auscultation bilaterally. ?No crackles, rales, rhonchi, wheezes heard. CARDIAC SYSTEM Regular rate and rhythm. ?S1 and S2 heard no murmurs. ?Radial pulses intact bilaterally MSK Hands: ?reducible swan neck deformity of the right 2nd digit. good claim administrator strength. no synovitis Wrists: ?Full range of motion at the wrists without pain. ?No tenderness to palpation or synovitis noted to the wrists. Elbows: Full range of motion without pain. No tenderness, weakness, swelling, increased warmth or erythema. Shoulders: Full range of motion without pain. No tenderness, weakness, swelling, increased warmth or erythema. Knees: ?Full range of motion. ?No tenderness, swelling, increased warmth or erythema.?No effusion or crepitations Ankles: Full range of motion. ?No tenderness, swelling, increased warmth or erythema.? Feet: ?Negative squeeze test. ?No tenderness to palpation or swelling of the MTPs. Tender points:?No tenderness to palpation of the bilateral trapezius, supraspinatus, greater trochanters, anterior costochondral junctions, bilateral gluteal areas, bilateral suboccipital muscle insertions SKIN Skin intact without rashes. Results Reviewed Results Reviewed: Laboratory Tests 08/30/24 11/12/24 12:35 16:07 WBC 6.9 RBC 4.80 Hgb 13.5 L Hct 41.6 L Plt Count 218 ESR 36 H Sodium 140 Potassium 3.2 L Chloride 108 Carbon Dioxide 23 BUN 18 H Creatinine 0.95 AST 36 ALT 33 Alkaline Phosphatase 59 C-Reactive Protein 0.79 H Total Protein 8.7 H Albumin 3.6 Angiotensin Convert Enz 7 L MRI L spine 11/2024 FINDINGS: Last rib-bearing vertebra labeled T12. No bone marrow STIR signal abnormality. The alignment is normal. Focal hyperintense T2 signal in the posterior intervertebral disc L5-S1, L4-5 and L2-3 likely related to focal annular fissure. There is a focal 2 mm maximal thickness cylindrical shaped intrinsic hyperintense T1 signal in the dorsal aspect of the thecal sac likely intradural and extramedullary at the L4 level. Conus medullaris ends at pedicle of L1 with normal signal. T12-L1: No compression upon neural elements. L1-2: Broad-based disc bulging. Facet joint hypertrophy. No compression upon neural elements. L2-3: Broad-based disc bulging. Facet joint and ligamentum flavum hypertrophy. Reduced AP diameter of the thecal sac and the neural foramina, right greater than the left. L3-4: Broad-based disc bulging. Facet joint and ligamentum flavum hypertrophy. Reduced AP diameter of the thecal sac and the neural foramina. L4-5: Broad-based disc bulging. Facet joint and ligamentum flavum hypertrophy. Reduced AP diameter of the thecal sac likely abutting the L5 exiting nerve roots. Bilateral neuroforamina stenosis) left likely encroaching the right L4 nerve root. L5-S1: There is a central disc herniation abutting the S1 nerve roots on the lateral recesses. There is a deformity of the thecal sac. Bilateral neuroforamina narrowing without compressing the exiting nerve roots. There is a 4 cm exophytic complex intrinsic hyperintense T1 and hypointense T2 lesion/mass with a posterior wall nodular component IMPRESSION: Multilevel lumbar spondylosis, L2-3 to L5-S1 resulting in central spinal canal stenosis and bilateral neuroforamina stenosis more conspicuous at L4-5 and L3-4 levels. 4 cm exophytic lesion/mass, upper pole left kidney. Malignancy cannot be excluded. 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 MRI T spine 11/2024 FINDINGS: Limited by patient's breathing motion artifact. The thoracic spinal cord signal is normal. Multilevel marginal osteophyte formation and disc desiccation more conspicuous at T3-4, T2-3 T9-10 and T10-11. The alignment is normal. No bone marrow STIR signal abnormality. There is a left subarticular disc protrusion at T5-6 without cord compression. There is a left subarticular disc protrusion at T10-11 without cord compression. The conus medullaris ends at pedicle of L1 with normal signal. No prevertebral compartment hematoma mass or fluid collections. There is a 4 cm exophytic lesion in the upper pole left kidney. IMPRESSION: Limited examination demonstrated no gross cord edema and or myelopathy nor the demyelinating plaque. Multilevel spondylosis without cord compression. 4 cm exophytic lesion/mass, upper pole left kidney. Assessment & Plan Assessment & Plan (1) Behcet's disease: Comment: Dx 2007. uveitis since 2000, oral ulcers, inflammatory arthritis since 2005 methotrexate tried - headaches Remicade, sulfasalazine, colchicine tried - not helpful Humira helps for joints and uveitis Code(s): M35.2 - Behcet's disease Category: Medical Plan: #Behcet's Disease vs Sarcoidosis Patient with a history of uveitis, oral ulcers and inflammatory arthritis since 2005. HLA B 51 is negative. STEVIE normal. Currently in remission Current complaints: eye issues and balance issues, not clearly related to his underlying disease. Refer to neurology Will also reach out to Dr. Tolu Caceres his twisting machine operator to discuss his eyes Plan - continue Humira 40 mg every other week - continue Prednisone 2.5 mg daily - RTC 6 months - labs before visit: CBC, CMP, ESR, CRP, hepatitis panel, T spot (2) Ataxia: Code(s): R27.0 - Ataxia, unspecified Category: Medical Plan: #Ataxia Patient with worsening gait ataxia over the past several months. No evidence of demyelinating disease on the thoracic or lumbar spine. We will refer to Neurology for further evaluation of this ataxia Plan - Refer to neurology (3) Uveitis: Comment: since 2000; seen at [facility]: CS eyedrops, hx surgery for glaucoma and ocular calcium some response to Humira Code(s): H20.9 - Unspecified iridocyclitis Category: Medical Plan: #Uveitis Complaining of blurry vision. Recommended following up with Ophthalmology to evaluate for active disease. Patient states he had some kind of surgery recently. We will need to reach out to his twisting machine operator to see if he has any active disease Plan - Reach out to Ophthalmology (4) Urinary frequency: Code(s): R35.0 - Frequency of micturition Plan: #Urinary Frequency Patient with increased urinary frequency, hesitancy and urgency. This sounds Prototypic for benign prostatic hyperplasia. We will refer to urology PSA normal Plan - Refer to Urology (5) Long-term use of immunosuppressant medication: Code(s): Z79.899 - Other mcc (current) drug therapy Category: Medical Plan: #Long-term Use of TNF Inhibitors: Humira Discussed with the patient the benefits and risks of TNF inhibitors for the management of the rheumatic condition Benefits include reduce pain, maintenance of remission and reduction of flares as well as ?progression of the disease Risks include injection sites/infusion reactions, serious infections (such as bacterial infections, opportunistic infections), malignancy, delaminating syndromes, autoimmune phenomena, CHF exacerbations, palmar plantar psoriasis and cytopenias Recommended rotating injection sites, and holding medication during and for up to 1 week after resolution of a febrile illness or open skin wound (6) MCC (current) use of systemic steroids: Code(s): Z79.52 - 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 Category: Medical Plan: #Long-term Use of Steroids Discussed with patient the risks and benefits of steroid for managing the rheumatic condition Benefits include: - Reduced pain, improved mobility, increased participation in activities, and decreased progression of disease Risks include: - GI upset, potential ultrasound worsening or formation (especially in patients > 65 years old), elevated blood pressure/worsening hypertension, elevated blood sugar/worsening diabetes control, worsening of bone density, elevated lipids/worsening triglycerides, cataract formation, weight gain Recommended using proton pump inhibitors (PPIs) for the duration of steroid use to reduce the risk of gastric ulcers and vitamin-D daily to reduce the risk of osteoporosis Labs checked: ?A1c, T spot, hepatitis-B and C serologies Pneumocystis jiroveci prophylaxis: ?Patient with risk factors including steroids greater than 50 mg for more than 30 days, age greater than 60 years, and lung involvement from underlying rheumatic disease requires prophylaxis and will be given so Plan I spent 65 minutes reviewing the record and labs, taking a history, examining the patient, discussing the treatment plan, attempting to contact Ophthalmology and documenting in the medical record Orders: Referrals Neurology Referral R27.0 - Ataxia, unspecified Coding Level of Care Code Est Pt Level 5 (50114) Complex EM visit Add On G2211 Diagnoses Behcet's disease M35.2 Ataxia R27.0 Uveitis H20.9 Urinary frequency R35.0 Long-term use of immunosuppressant medication Z79.899 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
[2025-01-22 09:41] VITALS: BP 142/80; PULSE 92; O2SAT 97; BMI 29.3
--- OUTSIDE RECORDS SUMMARY | 2025-01-22 09:47 | XMS_ITS | Encounter Summary ---
Author Organization [facility] Address [address] [place] [address] Care Team Providers Care Dice Spotter Name Role Phone Community, Pcp Primary Care Provider Unavailabl e Community, Pcp Primary Care Provider Unavailabl e Jethro Nunn MD Primary Care Prov ider Unavailable Encounter Details Date Type Department Care Team Description 11/11/2020 Orders Only Medical Records [address] [place] [id number] Jl Serrano MD Social History Tobacco Use Types Packs/Day Years Used Date Smoking Tobacco: Never Smokeless Tobacco: Never Alcohol Use Standard Drinks/Week Comments Yes 0 (1 standard drink = 0.6 oz pur e alcohol) occasional Sex Assigned at Date Recorded Not on file Job Start Date Occupation Industry Not on file Not on file Not on file COVID-19 Exposure Response Date Recorded In the last month, have you been in contact with someone who was confirmed or suspected to have Coronavirus / COVID-19? No / Unsure 11/06/2020 2:40 PM EST documented as of this encounter Plan of Treatment Not on file documented as of this encounter Procedures Procedure Name Priority Date/Time Associated Diagnosis Comments OUTSIDE LAB Routine 11/11/2020 documented in this encounter Results * OUTSIDE LAB (11/11/2020) Jl Serrano MD LAB documented in this encounter Visit Diagnoses Not on filedocumented in this encounter Care Teams Dice Spotter Relationship Specialty Start Date End Date Community, Pcp PCP - General Internal Medicine 09/12/20 10/04/21 Community, Pcp PCP - General Internal Medicine 10/05/21 01/26/22 NadJethro Tapia MD PCP - General Internal Medicine 01/27/22 documented as of this encounter
--- OUTSIDE RECORDS SUMMARY | 2025-01-22 09:47 | XMS_ITS ---
Author Name [facility] Organization Unknown Encounters Encounter Type Encounter Reason Primary Diagnosis Location Date Ambulatory [facility] 04/03/2024 Care Team Organization Name Specialty Phone Email Start Date End Da te [facility] PCP Violin Repairer 04/03/2024 01/09/2025 [facility] NO PCP Primary Care 03/26/2024 03/26/2024
--- OUTSIDE RECORDS SUMMARY | 2025-01-22 09:47 | XMS_ITS | Clinical Summary ---
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 Needs new clinical laboratory service teacher as of 07/13/2021. Loss of eye 07/15/2021 DX:Loss of eye Chronic uveitis 11/21/2020 DX:Chronic uveit is; COMMENT: On chronic steroids. History of osteomyelitis 11/21/2020 DX:Hist ory of osteomyelitis; COMMENT: R Ileum 11/07/15 History of subarachnoid hemorrhage 06/15/2017 DX:History of subarachnoid hemorrhage; COMMENT: 2003 [facility] Prediabetes 11/21/2020 DX:Prediabetes Tubular adenoma of colon [...] age to complete this topic Care Teams Manager Company Relationship Specialty [place] [address] [place] [id number] PCP - General Internal Medicine 01/27/22
--- OUTSIDE RECORDS SUMMARY | 2025-01-22 09:47 | XMS_ITS | Clinical Summary ---
Author Organization [address] Address [address] [place] [address] Care Team Providers Care Sample Prep Technician Name Role Phone Sheree Duff MD Primary Care Provider [phone] Allergies Active Allergy Reactions Criticality Noted Date [...] vaccine 05/24/2024 10/24/2013, 06/24/2012 Covid-19 vaccine series (1 - 2023-25 season) 2024 Pneumococcal Vaccine (50+ years) (1 of 1 - PCV) 2034 RSV Immunization (1 - 1-dose 75+ series) 2044 Meningococcal Vaccine Aged Out No mt duyen eligible based on patient's age to complete this topic Pneumococcal Vaccine (2 - 49 years) Aged Out No longer eligible b ased on patient's age to complete this topic Medical Devices Implanted Type Area Group Leader Wafer Polishing Device Identifier Shelf Expiration Date Model / Serial / Lot Lense Sn60wf 20.5 - [id number] Implanted:Qty : 1 on 06/28/2013 by Kenney Ramos MD at [facility] [address] Lens Right: Eye [employer] (ALCO-ZZZZ) 01/21/2018 SN60WF.205 / / [id number] Lens Sn60wf 21.0 - [id number] Implanted:Qty : 1 on 09/27/2013 by Kenney Ramos MD at [facility] [address] Lens Left: Eye [employer] (ALCO[employer]ZZZZ) 06/23/2018 SN60WF.210 / [id number] / [id number]. Implant Retisert 0.59mg Drug - [id number] Implanted:Qty : 1 on 06/28/2013 by Kenney Ramos MD at [address] Right: Eye [employer] (BAUS[employer]ZZZZ) 12/22/2014 [id number] / / [id number] Implant Retisert 0.59mg Drug - [id number] Implanted:Qty : 1 on 09/27/2013 by Kenney Ramos MD at [address] Left: Eye [employer] (BAUS[employer]ZZZZ) 01/21/2015 [id number] / / [id number] Insurance [facility] Care Teams Sample Prep Technician Relationship Specialty Start Date End Date Sheree Duff MD [address] [place] [address] PCP - General Internal Medicine 11/02/13
--- OUTSIDE RECORDS SUMMARY | 2025-01-22 09:47 | XMS_ITS | Clinical Summary ---
Author Organization [facility] Address [address] [place] [address] Care Team Providers Care Wire Rigger Name Role Phone Pcp, No Primary Care [...] age to complete this topic Care Teams Wire Rigger Relationship Specialty Start Date End Date Pcp, No PCP - General General Medicine 04/19/22
--- OUTSIDE RECORDS SUMMARY | 2025-01-22 09:47 | XMS_ITS | Encounter Summary ---
Author Organization [facility] Address [address] [place] [phone] Care Team Providers Care Meter Tester Polyphase Name Role Phone Unavailable Primary Care Provider Unavailabl e Encounter Details Date Type Department Care Team (Late st Contact Info) Description 05/14/2011 1:30 PM EDT Hospital Encounter INTERFACE DEFAULT [address] [place] [id number] Social History Tobacco Use Types Packs/Day Years [...]
--- OUTSIDE RECORDS SUMMARY | 2025-01-22 09:47 | XMS_ITS | Encounter Summary ---
Author Organization [facility] Address [address] [place] [address] Care Team Providers Care Recreation Engineer Name Role Phone Toyin Liu MD Primary Care Provider Unavail able Community, Pcp Primary Care Provider Unavailabl e Community, Pcp Primary Care Provider Unavailabl e Jethro Nunn MD Primary Care Prov ider Unavailable Encounter Details Date Type Department Care Team Description 06/17/2017 Release of Information Medical Records [address] [place] [id number] Abstract, Provider Social History Tobacco Use Types Packs/Day Years Used Date Smoking Tobacco: Never Smokeless Tobacco: Never Sex Assigned at Date Recorded Not on file Job Start Date Occupation Industry Not on file Not on file Not on file documented as of this encounter Plan of Treatment Not on file documented as of this encounter Visit Diagnoses Not on filedocumented in this encounter Care Teams Recreation Engineer Relationship Specialty Start Date End Date Toyin Liu MD PCP - General Internal Medicine 06/15/17 09/11/20 Community, Pcp PCP - General Internal Medicine 09/12/20 10/04/21 [facility], Pcp PCP - General Internal Medicine 10/05/21 01/26/22 Jethro Nunn MD PCP - General Internal Medicine 01/27/22 documented as of this encounter
== END 2025-01-22 10:22 | disposition home or self-care (01) ==
PROVIDERS: PCP Internal Medicine; Visit Provider Student in an Organized Health Care Education/Training Program
DX: M35.2 Behcet's disease (principal); R27.0 Ataxia, unspecified; H20.9 Unspecified iridocyclitis; R35.0 Frequency of micturition; Z79.899 Other long term (current) drug therapy; Z79.52 Long term (current) use of systemic steroids
CPT/HCPCS: 99215; 99417; G2211

== ENCOUNTER → 2025-01-22 09:02 | Outpatient (BNVA) | payer OTHER, SELFPAY | PROVIDERS: PCP Internal Medicine; Visit Provider Student in an Organized Health Care Education/Training Program | DX: M35.2 Behcet's disease (principal); R27.0 Ataxia, unspecified; H20.9 Unspecified iridocyclitis; R35.0 Frequency of micturition; Z79.52 Long term (current) use of systemic steroids; Z79.899 Other long term (current) drug therapy | CPT/HCPCS: 99212 ==

== ENCOUNTER 2025-03-19 14:42 | Outpatient (AMB) | payer OTHER, SELFPAY ==
--- OUTSIDE RECORDS SUMMARY | 2025-03-19 14:46 | XMS_ITS | Clinical Summary ---
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 Encounters Date Type Department Care Team Description 02/05/2025 Telephone Ophthalmology at [address] [place] [address] [place] [id number] Milton Mills MD Other from Last 3 Months Family History Medical History Relation Name Comments [...] cancer screening, Colonoscopy 2014 Diabetes screening 2014 Pneumococcal Vaccine (50+ years) (1 of 1 - PCV) 2019 Shingles vaccine (Shingrix) (1 of 2 - Shingrix (RZV) 2 Dose Standard Series) 2019 Tetanus adult (Td q 10,TDAP once) 01/13/2022 01/14/2012 Covid-19 vaccine series ( - 2023- season) 2024 Influenza vaccine 06/24/2025 10/24/2013, 06/24/2012 RSV Immunization (1 - 1-dose 75+ series) 2044 Meningococcal Vaccine Aged Out No mt duyen eligible based on patient's age to complete this topic Medical Devices Implanted Type Area Reception Device Identifier Shelf Expiration Date Model / Serial / Lot Lense Sn60wf 20.5 - [id number] Implanted:Qty : 1 on 06/28/2013 by Kenney Ramos MD at [facility] [address] Lens Right: Eye [employer] ([employer]) 01/21/2018 SN60WF.205 / / [id number] Lens Sn60wf 21.0 - [id number] Implanted:Qty : 1 on 09/27/2013 by Kenney Ramos MD at [facility] [address] Lens Left: Eye [employer] ([employer]) 06/23/2018 SN60WF.210 / [id number] / [id number]. Implant Retisert 0.59mg Drug - [id number] Implanted:Qty : 1 on 06/28/2013 by Kenney Ramos MD at [address] Right: Eye [employer] ([employer]ZZZZ) 12/22/2014 [id number] / / [id number] Implant Retisert 0.59mg Drug - [id number] Implanted:Qty : 1 on 09/27/2013 by Kenney Ramos MD at [address] Left: Eye [employer] (BA[employer]ZZZZ) 01/21/2015 [id number] / / [id number] Insurance [facility] Care Teams Taker Off Hemp Fiber Relationship Specialty Start Date End Date Sheree Duff MD [address] [place] [address] PCP - General Internal Medicine 11/02/13
--- NOTE | 2025-03-19 14:50 | A.OFFVIS_ITS ---
Intake Visit Reasons: kidney mass Intake Note: Patient presents today for kidney mass Urology Medication:None Blood Thinner:None Antibiotic Allergies:None Allergies azathioprine [Imuran] Allergy (Intermediate, Verified 03/19/25 14:52) swelling HPI Comments Details: Prabhjot is a pleasant male. He is a patient of Dr. Duff. He is seen for the following urologic conditions - left renal mass Incidental discovery uretero evaluation for back issues Seen on spinal MRI He tells me there may have been lesion there in 2016 when he had a CT scan at the [facility] in [place] We will try to obtain these records Longstanding Behcet's with autoimmune related rheumatoid arthritis In the meantime plan for renal MRI to characterize lesion [facility] Medical History custodial (current) use of systemic steroids Glaucoma (increased eye pressure) History of nontraumatic rupture of cerebral aneurysm Long-term use of immunosuppressant medication Glaucoma suspect of both eyes Ataxia Hearing loss of both ears Hypertension Inflammatory arthritis Uveitis Behcet's disease Surgical History Hx of eye surgery Social History Alcohol intake: current Patient Tobacco Use Status: Never used Tobacco Current occupational status: retired Review of Systems Const Denies chills and Denies fever(s) Card Reports no additional complaints and Denies syncope Resp Denies cough GI Denies abdominal pain and Denies heartburn Reports as per HPI and Denies change in libido Neuro Denies syncope Psych Denies change in libido Endo Denies change in libido Physical Exam Const General: cooperative, healthy appearing, comfortable and no acute distress Orientation/consciousness: patient oriented x3 HEENT Face and sinus: Yes normal facial exam Mouth: moist mucous membranes Neck Neck: Yes normal visual inspection, Yes full ROM and Yes trachea midline Chest Chest palpation & inspection: normal inspection of the chest Resp Effort & Inspection: normal respiratory effort, able to speak in complete sentences and no respiratory distress GI Inspection: Yes normal to inspection Back/Spine/Pelvis Cervical Spine: normal cervical lordosis Thoracic/Lumbar Spine: thoracic and lumbar spine normal to inspection Skin General skin exam: no rashes or lesions noted Neuro General: patient oriented x3, gait normal, tone normal and moves all extremities Extrem General: Yes normal to inspection and Yes capillary refill normal Assessment & Plan Assessment & Plan (1) Renal mass: Code(s): N28.89 - Other specified disorders of kidney and ureter Category: Medical Plan Imaging to complete characterization Patient Instructions: This note is constructed using voice recognition software. While every effort has been made to ensure accuracy lpn private duty errors may have been included. Imaging studies, laboratory and physical exam results were discussed and reviewed in detail. No major barriers to patient understanding were identified. An opportunity to ask questions regarding the treatment plan was provided. All questions were answered. The patient expressed understanding and agreement with the above treatment plan. The patient is aware they should contact our office by phone for worsening of their current condition or the appearance of new urologic symptoms. Compliance is encouraged with any medications and followup testing that is ordered. It is a privilege to participate in the urologic care of your patient. If you have any questions or concerns regarding treatment for the above conditions, or other urologic issues, please do not hesitate to contact me. The office telephone contact is [phone]. Sincerely, Dr Niall Burleson MD, [facility] - Urology Compassionate Specialist Care for the Genitourinary System Coding Level of Care Code New Pt Level 4 (89275) Diagnoses Renal mass N28.89
== END 2025-03-19 16:42 | disposition home or self-care (01) ==
LOC: HO.HUSH 14:43
PROVIDERS: PCP Internal Medicine; Visit Provider Urology
DX: N28.89 Other specified disorders of kidney and ureter (principal)
CPT/HCPCS: 99204

== ENCOUNTER → 2025-03-19 14:42 | Outpatient (BNVA) | payer OTHER, SELFPAY | PROVIDERS: PCP Internal Medicine; Visit Provider Urology | DX: N28.89 Other specified disorders of kidney and ureter (principal) | CPT/HCPCS: 99202 ==

== ENCOUNTER 2025-05-04 16:54 | Outpatient (REF) | payer OTHER, SELFPAY ==
--- NOTE | ~2025-05-04 | MR_ITS ---
EXAMINATION: MR ABDOMEN WITHOUT THEN WITH IV CONTRAST HISTORY: N28.89 - Other specified disorders of kidney and ureter COMPARISON: Relation is made with an MRI of the lumbar spine dated 12/08/2024. TECHNIQUE: Axial in and out of phase T1-weighted gradient echo, axial diffusion weighted, and axial and coronal HASTE T2 with fat saturation images were obtained through the abdomen. Subsequently, fat suppressed axial and coronal T1-weighted images were obtained after the intravenous administration of 9.5 mL Gadavist. Subtraction images were also obtained. FINDINGS: Liver: There is no loss of signal intensity in the liver on opposed phase imaging to suggest steatosis. There is a tiny 5 mm cyst in the central portion of the liver. There is no enhancing liver mass. The hepatic and portal veins are patent. There is no intrahepatic biliary dilatation. Gallbladder/biliary tree: No gallstones are identified. The common bile duct is normal in caliber. No intraluminal filling defects are identified to suggest choledocholithiasis. Spleen: The spleen is unremarkable. Pancreas: There are scattered tiny 1-2 mm cyst in the pancreatic body and tail. There is no enhancing pancreatic mass. The pancreatic duct is normal in caliber. Adrenals: The adrenal glands are unremarkable. Kidneys: The right kidney is unremarkable. There is a 4.4 x 3.9 x 3.3 cm mass at the upper pole of the left kidney which is T1 hyperintense and T2 hypointense. There is a thin enhancing septation the posterior aspect of the lesion. Subtraction images demonstrate thickening of the medial and superior pleitez measuring up to 5 mm in thickness. No internal nodularity is identified. At the anterior aspect of the lower pole of the left kidney, there is a similar appearing 9 mm T1 hyperintense and T2 hypointense lesion which does not demonstrate enhancement. This is consistent with a proteinaceous or hemorrhagic cyst. Lymph nodes: There is no retroperitoneal lymphadenopathy in the upper abdomen. Fluid: There is no ascites in the upper abdomen. Visualized bowel: The visualized bowels loops are unremarkable in appearance. Visualized bones: The visualized bones demonstrate normal marrow signal intensity. MR/MR abdomen wo/w con IMPRESSION: 1. 4.4 x 3.9 x 3.3 cm cystic mass at the upper pole of the left kidney which demonstrates mild smooth wall thickening (5 mm) and enhancement. This represents a Bosniak III lesion which has an intermediate probability of malignancy. 2. 9 mm hemorrhagic or proteinaceous cyst at the lower pole of the left kidney. 3. Findings were sent to Dr. Bruleson by secure text message on 05/06/2025 at 7:51 AM. Electronically signed by: Kenneth Terrell MD 05/06/2025 07:52 AM EDT
== END 2025-05-04 16:55 | disposition home or self-care (01) ==
LOC: HO.MRI 16:54
PROVIDERS: PCP Internal Medicine; Visit Provider Urology
DX: N28.89 Other specified disorders of kidney and ureter (principal)
CPT/HCPCS: 74183; A9585

== ENCOUNTER → 2025-05-04 16:56 | Outpatient (BNV) | payer OTHER, SELFPAY | PROVIDERS: PCP Internal Medicine; Visit Provider Radiology Diagnostic Radiology | DX: N28.1 Cyst of kidney, acquired (principal) | CPT/HCPCS: 74183 ==

== ENCOUNTER 2025-05-22 15:05 | Outpatient (AMB) | payer OTHER, SELFPAY ==
--- OUTSIDE RECORDS SUMMARY | 2011-05-14 13:30 | XMS_ITS | Encounter Summary ---
Author Organization [facility] and [facility] Address [address] [place] [phone] Care Team Providers Care Cabbage Salter Name Role Phone Unavailable Primary Care Provider Unavailabl e Encounter Details Date Type Department Care Team (Late st Contact Info) Description 05/14/2011 1:30 PM EDT Hospital Encounter INTERFACE DEFAULT [address] [place] [address] [phone] Social History Tobacco Use Types Packs/Day Years Used Date Smoking Tobacco: Never Alcohol Use Standard Drinks/Week Comments No 0 (1 standard drink = 0.6 oz pur e alcohol) Sex and Gender Information Value Date Recorded Sex Assigned at Not on file Legal Sex Male 9:04 AM EST Gender Identity Not on file Sexual Orientation Not on file documented as of this encounter Plan of Treatment Not on file documented as of this encounter Visit Diagnoses Not on filedocumented in this encounter
--- NOTE | 2025-05-22 15:06 | A.OFFVIS_ITS ---
Intake Visit Reasons: 4w/MRI Intake Note: Patient presents today for 4 WK follow up kidney mass Imaging done : 05/04/2025 Urology Medication:None Blood Thinner:None Antibiotic Allergies:None Nursing Clinical Director Required: No Accompanied by: Self / Same As Patient Allergies azathioprine (Imuran) Allergy (Intermediate, Verified 05/22/25 15:07) swelling HPI Comments Details: Prabhjot is a pleasant male. He is a patient of Dr. Duff. He is seen for the following urologic conditions - left renal mass Telemedicine Evaluation 15 min Consultation [employer] Video Discussed imaging findings Bosniak 3 This would have a 25% chance of cancer Plan repeat imaging six-month Left renal Bosniak 3 Incidental discovery during evaluation for back issues He tells me there may have been lesion there in 2016 when he had a CT scan at the [facility] in [place] Longstanding Behcet's with autoimmune related rheumatoid arthritis Imaging - MRI 05/17 4 cm Bosniak 3 cyst [facility] Medical History (Updated 05/22/25 @ 15:27 by Niall Burleson MD) Renal mass intermediate card tender (current) use of systemic steroids Glaucoma (increased eye pressure) History of nontraumatic rupture of cerebral aneurysm Long-term use of immunosuppressant medication Glaucoma suspect of both eyes Ataxia Hearing loss of both ears Hypertension Inflammatory arthritis Uveitis Behcet's disease Surgical History Hx of eye surgery Social History Alcohol intake: current Patient Tobacco Use Status: Never used Tobacco Current occupational status: retired Review of Systems Const All systems reviewed & are unremarkable except as noted in HPI and below Reports no additional complaints Resp Reports no additional complaints GI Reports no additional complaints Reports as per HPI Musc Reports no additional complaints Physical Exam Telemedicine evaluation Appropriate responses Regular breathing rate and rhythm HEENT Head: Yes normal to inspection Ears: hearing grossly normal bilaterally Eyes General: appearance normal, both eyes and all related structures Neck Neck: Yes normal visual inspection Chest Chest palpation & inspection: normal inspection of the chest Resp Effort & Inspection: normal respiratory effort and able to speak in complete sentences Telehealth Telehealth Telehealth Platform: [employer] Location of provider rendering services: practice address Location of patient: address on file Patient Identification confirmed using: Name, : Yes Telehealth method: video Patient verbally consented to treatment: Yes Patient verbally consented to billing insurance company: Yes Patient informed of any privacy concerns related to visit: Yes Minutes spent on Phone/Video with Pt.: 15 Assessment & Plan Assessment & Plan (1) Complex renal cyst: Code(s): N28.1 - Cyst of kidney, acquired Category: Medical Plan Six-month follow-up repeat imaging Orders: Orders MR abdomen wo/w con 6 Months N28.1 - Cyst of kidney, acquired Patient Instructions: This note is constructed using voice recognition software. While every effort has been made to ensure accuracy event specialist errors may have been included. Imaging studies, laboratory and physical exam results were discussed and reviewed in detail. No major barriers to patient understanding were identified. An opportunity to ask questions regarding the treatment plan was provided. All questions were answered. The patient expressed understanding and agreement with the above treatment plan. The patient is aware they should contact our office by phone for worsening of th eir current condition or the appearance of new urologic symptoms. Compliance is encouraged with any medications and followup testing that is ordered. It is a privilege to participate in the urologic care of your patient. If you have any questions or concerns regarding treatment for the above conditions, or other urologic issues, please do not hesitate to contact me. The office telephone contact is [phone]. Sincerely, Dr Niall Burleson MD, [facility] - Urology Compassionate Specialist Care for the Genitourinary System Coding Level of Care Code Tele Est Pt Level 3 (53973) Complex EM visit Add On G2211 Diagnoses Complex renal cyst N28.1
--- OUTSIDE RECORDS SUMMARY | 2025-05-22 15:48 | XMS_ITS | Clinical Summary ---
Author Organization [facility] Address [address] [place] [address] Care Team Providers Care Cell Tower Climber Name Role Phone Pcp, No Primary Care Provider Unavailabl e Social History Tobacco Use Types Packs/Day Years Used Date Smoking Tobacco: Never Assessed Sex and Gender Information Value Date Recorded Sex Assigned at Not on file Legal Sex Male 12:14 PM EDT Gender Identity Not on file Sexual Orientation Not on file Plan of Treatment Health Maintenance Due Date Last Done Comments Hepatitis C Virus Screening 1969 HIV Screening 1982 DTaP/Tdap/Td Vaccines (1 - Tdap) 1988 Hepatitis B Vaccines (1 of 3 - 19+ 3-dose series) 1988 Colonoscopy 2014 Pneumococcal Vaccines 50+ (1 of 1 - PCV) 2019 Zoster (Shingles) Vaccine (1 of 2) 2019 COVID-19 Vaccine (1 - 2023- season) 2024 Influenza Vaccine 05/24/2025 10/24/2013, 06/24/2012 Insurance [facility] Care Teams Cell Tower Climber Relationship Specialty Start Date End Date Pcp, No PCP - General General Medicine 04/19/22
--- OUTSIDE RECORDS SUMMARY | 2025-05-22 15:48 | XMS_ITS | Clinical Summary ---
Author Organization [facility] Address [address] [place] [address] Care Team Providers Care Urban Renewal Manager Name Role Phone Jethro Benitez MD Primary Care Prov ider Surgical History Surgery Date Site/Laterality Comments OTHER SURGICAL HISTORY PROCEDURE: COLONSCOPY THRU STOMA W/TRANSENDO STENT PLCMT; COMMENT: neg EYE SURGERY 02/02/2019 PROCEDURE: HISTORICAL EYE SURGERY Medical History Medical History Date Comments HTN (hypertension) DX:HTN (hyper tension) Behcet's disease (CMS/HCC V2 4, CMS/HCC V28) 06/15/2017 DX:Behcet's disease (HCC); C OMMENT: On Humira. Needs new aviation electrician as of 07/13/2021. Loss of eye 07/15/2021 DX:Loss of eye Chronic uveitis 11/21/2020 DX:Chronic uveit is; COMMENT: On chronic steroids. History of osteomyelitis 11/21/2020 DX:Hist ory of osteomyelitis; COMMENT: R Ileum 11/07/15 History of subarachnoid hemorrhage 06/15/2017 DX:History of subarachnoid hemorrhage; COMMENT: 2003 [facility] Prediabetes 11/21/2020 DX:Prediabetes Tubular adenoma of colon [...] Panel) 10/02/2022 Colorectal Cancer Screening: Colonoscopy 10/02/2022 HIV Screening 10/02/2022 Hepatitis C Screening 10/02/2022 Social Influencers of Health Screening 10/02/2022 Hypertension/CHF/CAD Annual BMP Blood Test 10/08/2022 Depression Screening 10/24/2024 Influenza Vaccine (#1) 2025 HIB Vaccines Aged Out No longer eligi [...] age to complete this topic Meningococcal B Vaccine Aged Out No l onger eligible based on patient's age to complete this topic RSV Immunization Patients Un ashok 20 months Aged Out No longer eligible b ased on patient's age to complete this topic Varicella Vaccines Aged Out No longer eligible based on patient's age to complete this topic Care Teams Urban Renewal Manager Relationship Specialty Start Date End Date Jethro eBnitez MD [address] [place] [address] PCP - General Internal Medicine 01/27/22
--- OUTSIDE RECORDS SUMMARY | 2025-05-22 15:48 | XMS_ITS | Encounter Summary ---
Author Organization [facility] Address [address] [facility] [address] [place] [phone] Phone Care Team Providers Care Ice Skating Coach Name Role Phone Sheree Duff MD Primary Care Provider Encounter Details Date Type Department Care Team (Late st Contact Info) Description 08/26/2020 Procedure [facility], Ct Scan - [address] [address] Social History Tobacco Use Types Packs/Day Years Used Date Smoking Tobacco: Never Smokeless Tobacco: Never Alcohol Use Standard Drinks/Week Comments Yes 0 (1 standard drink = 0.6 oz pur e alcohol) Sex and Gender Information Value Date Recorded Sex Assigned at Male 08/26/2020 12:29 PM EST Legal Sex Male 10:07 AM EST Gender Identity Male 08/26/2020 12:29 PM EST Sexual Orientation Straight 08/26/2020 12 :29 PM EST documented as of this encounter Plan of Treatment Not on file documented as of this encounter Visit Diagnoses Not on filedocumented in this encounter Care Teams Ice Skating Coach Relationship Specialty Start Date End Date Sheree Duff MD [address] [place] [address] PCP - General Internal Medicine 08/26/20 documented as of this encounter Additional Source Comments The information contained in this document represents components of the legal health record. It is not the complete legal health record.[facility]
--- OUTSIDE RECORDS SUMMARY | 2025-05-22 15:48 | XMS_ITS ---
Author Name [facility] Organization Unknown Encounters Encounter Type Encounter Reason Primary Diagnosis Location Date Ambulatory [facility] 04/03/2024 Care Team Organization Name Specialty Phone Email Start Date End Da te [facility] PCP Riding Instructor 04/03/2024 01/09/2025 [facility] NO PCP Primary Care 03/26/2024 03/26/2024
--- OUTSIDE RECORDS SUMMARY | 2025-05-22 15:48 | XMS_ITS | Clinical Summary ---
Author Organization [facility] Address [address] [facility] [place] [address] Care Team Providers Care Outside Installer Apprentice Name Role Phone Jethro Nunn MD Primary Care Prov ider Unavailable Allergies Active Allergy Reactions Severity Noted Date Comments Azathioprine 07/15/2021 No reaction documented. Infliximab Swelling/Edema 06/15/2017 Medications Medication Sig Dispensed Refills Start Date End Date Status amlodipine (NORVASC) 10 MG tablet Take 10 mg by mouth daily. 0 Active Adalimumab 40 MG/0.8ML Prefilled Syringe Kit Inject 40 mg into the skin. Every other week 0 Active MIRALAX 17 GM/SCOOP powder Empty entire bottle into 64 ounces of any clear liquid: such as Gatorade or Crystal light or any clear lquid. Starting at 4 PM, drink 8 oz glass of the prep every 20 minutes until the bottle is completely emptied. 238 g 0 11/06/2020 Active acetaZOLAMIDE (DIAMOX) 250 MG tablet Take 250 mg by mouth 2 times daily. 0 Active DIFLUPREDNATE OP apply to the eye. 0 A ctive dorzolamide-timolol (COSOPT) 22.3-6.8 MG/ML ophthalmic solution 1 Drop 2 times daily. 0 Active lisinopril (PRINIVIL,ZESTRIL) 10 MG tablet Take 10 mg by mouth daily. 0 Active predniSONE (DELTASONE) 10 MG tablet Take 10 mg by mouth daily. 0 Active triamcinolone (KENALOG) 0.1 % paste Place onto teeth 2 times daily. 0 Active moxifloxacin (VIGAMOX) 0.5 % ophthalmic solution 1 Drop 4 times daily. 0 Active hydrochlorothiazide (HYDRODIURIL) 25 MG tablet Take 25 mg by mouth daily. 0 Active ascorbic acid (VITAMIN C) 500 MG tablet Take 500 mg by mouth daily. 0 Active potassium chloride (K-DUR) 10 MEQ tablet Take 10 mEq by mouth 2 times daily. 0 Active bisacodyl (Dulcolax) 5 MG EC tablet Take 2 tabs at 6pm as directed. 2 Tablet 0 05/26/2022 Active polyethylene glycol (GoLYTELY,NuLYTELY) 236 g suspension Take 4 L by mouth once for 1 dose. (May substitute any PEG) Mix prep according to directions. Drink one 8oz glass at your own pace until half the gallon is completed. Rest and then finish the second half, one 8oz glass at your own pace until gallon is complete. Follow directions given by office for timing. 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 Flat foot 11/21/2020 Hearing loss 11/21/2020 Tubular adenoma of colon 11/21/2020 Overview: 09/29/11 4 mm tubular adenoma-transverse colon. 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 Needs new bicycle messenger as of 07/13/2021. History of subarachnoid hemorrhage 06/15 Overview: 2004 [facility] Essential hypertension 06/15/2017 Family History Medical History Relation Name Comments Diabetes Brother CA Colon Father Diabetes Mother SLE Sister Hypertension Son Relation Name Status [...] file Not on file Not on file Last Filed Vital Signs Vital Sign Reading Time Taken Comments Blood Pressure 140/90 11/06/2020 3:04 PM EST Pulse 84 11/06/2020 3:04 PM EST Temperature 36.8 C (98.3 F) 07/11/2017 3:59 PM EDT Respiratory Rate 14 07/11/2017 3:59 PM EDT Oxygen Saturation 98% 11/06/2020 3:04 PM EST Inhaled Oxygen Concentration - - Weight 84.4 kg (186 lb) 11/06/2020 3:04 PM EST Height 180.3 cm (5' 11 ) 11/06/2020 3:04 PM EST Body Mass Index 25.94 11/06/2020 3:04 PM EST Plan of Treatment Health Maintenance Due Date Last Done Comments Covid-19 Vaccine (#1) 01/25/1970 DTAP/TDAP/TD (1 - Tdap) 1988 CHOLESTEROL SCREENING 1989 BASELINE HEALTH EXAM 40-64 2009 SHINGLES VACCINE (1 of 2) 2019 COLON CANCER SCREENING 11/30/2023 3, 11/11/2020, 10/14/2011, Additional history exists BMI CHECK/ADVISE 10/24/2024 11/06/2020 INFLUENZA (#1) 2025 PNEUMOCOCCAL VACCINE FOR HIG H RISK PATIENTS (#1) 2034 Care Teams Outside Installer Apprentice Relationship Specialty Start Date End Date Jethro Nunn MD PCP - General Internal Medicine 01/27/22
== END 2025-05-22 15:51 | disposition home or self-care (01) ==
LOC: HO.HUSH 15:05
PROVIDERS: PCP Internal Medicine; Visit Provider Urology
DX: N28.1 Cyst of kidney, acquired (principal)
CPT/HCPCS: 99213; G2211